=== PATIENT | female | born 1990 | race Caucasian/White ===

== ENCOUNTER 2017-12-30 13:10 | Emergency (ER) | payer MEDICAID ==
[2017-12-30 13:21] VITALS: BMI 24.0
[2017-12-30 14:24] LABS: BASO % 0.5 % (0.0-2.0); EOS # 0.1 K/uL (0.0-0.7); EOS % 0.8 % (0.0-4.0); LYMPH # 1.6 K/uL (1.0-4.3); LYMPH % 20.1 % (20.0-40.0); MEAN CELL VOLUME 90.3 fL (81.0-99.0); MEAN CORPUSCULAR HEMOGLOBIN 31.6 pg (27.0-31.0); MEAN CORPUSCULAR HGB CONC 34.9 g/dL (33.0-37.0); MEAN PLATELET VOLUME 7.8 fL (7.2-11.7); MONO # 0.5 K/uL (0.0-0.8); MONO % 5.9 % (0.0-10.0); NEUT # 5.7 K/uL (1.8-7.0); NEUT % 72.7 % (50.0-75.0); NRBC % 0.1 % (0.0-2.0); RBC 4.11 Mil/uL (3.80-5.20); RED CELL DISTRIBUTION WIDTH 13.6 % (11.5-14.5); WHITE BLOOD COUNT 7.8 K/uL (4.8-10.8)
--- NOTE | 2017-12-30 14:31 | OBHP ---
Datetime: 12/30/2017 14:01 IP Admit Plan: Observation/Evaluation Admit Comment, IP Provider: [id number] LMP unknown presents to [facility] w/ c/o pelvic pain x1 mo which was intermittent and now constant x2 days. aggravated by ambulation, change in position and relieved by rest. She denies ctxs, cramps, bleeding, pprom. +fm. No care w/ current preg. pt is from [facility]. States she conceived while and did not seek pnc because she did not know she wa s preg. she has been in in x1mo. she is not taking pnv. c/o h/a 02/11 without visual disturbance, aur a. +dizziness when not eating bread. c/o increased urinary freq. obhx: sab txed w/ cytotec; x2 w/ norml preg nkda shx: denies tobacco, etoh, or drugs pmhx: denies medic: none i: 2nd trim preg by PE p: cbc, t_s, ua ob us for dating Pelvic Type - PN: Adequate Extremities - PN: Normal Abdomen - PN: Normal Lungs - PN: Normal Heart - PN: Normal Neurologic - PN: Normal HEENT - PN: Normal General - PN: Normal FHR - Baseline A Provider: 140 Membranes, Provider: Intact Contraction Comments Provider: no Nitrazine Provider: Negative Vital Signs Provider: Within Normal Limits IP Chief Complaint: Other NICHD Variability Prov Fetus A: Moderate 6-25bpm NICHD Accel Fetus A IP Provider: 15X15 Dilatation, Provider: 0 Effacement, Provider: 0 Station, Provider: high
[2017-12-30 14:50] LABS: SQUAMOUS EPITHIAL < 1 /hpf (0-5); URINE BACTERIA RARE (<OCC); URINE BILIRUBIN NEGATIVE (NEGATIVE); URINE BLOOD NEGATIVE (NEGATIVE); URINE CLARITY Clear (Clear); URINE COLOR Colorless (YELLOW); URINE GLUCOSE (UA) NORMAL (Normal); URINE LEUKOCYTE ESTERASE NEG Leu/uL (Negative); URINE PROTEIN NEGATIVE (NEGATIVE); URINE UROBILINOGEN NORMAL mg/dL (0.2-1.0)
--- NOTE | 2017-12-30 16:20 | US ---
EXAM: US Uterus, Limited EXAM DATE/TIME: Exam ordered 12/30/2017 1:56 PM CLINICAL HISTORY: 27 years old, female; Pain; Other: Mild pelvic pain no care; Gestational age or lmp: Unknown; ; Additional info: No care; For edc TECHNIQUE: Real-time ultrasound of the maternal uterus (limited) with image documentation. COMPARISON: No relevant prior studies available. FINDINGS: Biometry BPD = [5.5 cm]; Estimated Menstrual Age = [22 w 5 d]; Range = [21W 0D x20 4W 3-D] HC = [20.52 cm]; Estimated Menstrual Age = [22 w 4 d]; Range = [45O1Y-85K8R] AC = [18.81 cm]; Estimated Menstrual Age = [23 w 4 d]; Range = [65E4L-08C1N] FL = [3.87 cm]; Estimated Menstrual Age = [22 w 3 d]; Range = [78D8T-28X 2-D] HC/AC Ratio = [1.09] normal 1.05-1.21 EFW = 554 g plus or -83 g (1 lb. 4 oz. plus or -3 ounces) Amniotic fluid: Qualitatively normal Placenta: Anterior and fundal and free of the cervical os Cervix: 3.2 cm in length. Closed at the time of the examination. Presentation: Vertex HR =[138 bpm] Survey : Not performed IMPRESSION: 1. Single live intrauterine with an estimated menstrual age of 22 weeks and 6 days plus or -1 week and 4 days. Expected date of delivery 04/29/2018.
[2017-12-30 20:19] VITALS: BP 101/57; PULSE 67; O2SAT 99
== END 2017-12-30 16:00 | disposition home or self-care (01) ==
LOC: C.EROB 13:10
DX: O26.92 Pregnancy related conditions, unspecified, second trimester (principal); R10.2 Pelvic and perineal pain; Z3A.22 22 weeks gestation of pregnancy

== ENCOUNTER 2018-05-04 08:00 | Inpatient (IN) | payer MEDICAID, OTHER ==
[2018-05-04] MEDS ORDERED: Lactated Ringer's 1,000 ML IV ONE (09:17)
[2018-05-04 09:19] VITALS: BMI 30.2
[2018-05-04 10:10] LABS: BASO % 0.3 % (0.0-2.0); EOS % 0.7 % (0.0-4.0); HEMOGLOBIN 12.5 g/dL (11.0-16.0); LYMPH # 1.3 K/uL (1.0-4.3); LYMPH % 19.8 % (20.0-40.0); MEAN CORPUSCULAR HEMOGLOBIN 30.3 pg (27.0-31.0); MEAN CORPUSCULAR HGB CONC 34.9 g/dL (33.0-37.0); MEAN PLATELET VOLUME 7.8 fL (7.2-11.7); MONO # 0.4 K/uL (0.0-0.8); MONO % 6.3 % (0.0-10.0); NEUT # 4.6 K/uL (1.8-7.0); NEUT % 72.9 % (50.0-75.0); NRBC % 0.1 % (0.0-2.0); RBC 4.14 Mil/uL (3.80-5.20); RED CELL DISTRIBUTION WIDTH 14.1 % (11.5-14.5); WHITE BLOOD COUNT 6.3 K/uL (4.8-10.8)
[2018-05-04 10:11] LABS: SQUAMOUS EPITHIAL 4 /hpf (0-5); URINE BACTERIA OCC (<OCC); URINE BILIRUBIN NEGATIVE (NEGATIVE); URINE BLOOD NEGATIVE (NEGATIVE); URINE CLARITY Clear (Clear); URINE COLOR Yellow (YELLOW); URINE GLUCOSE (UA) NORMAL (Normal); URINE LEUKOCYTE ESTERASE NEG Leu/uL (Negative); URINE PROTEIN NEGATIVE (NEGATIVE); URINE UROBILINOGEN NORMAL mg/dL (0.2-1.0)
[2018-05-04 10:15] LABS: MEAN CELL VOLUME 86.7 fL (81.0-99.0)
[2018-05-04] MEDS: Lactated Ringer's 1,000 ML IV SCH (10:15)
[2018-05-04 10:26] LABS: ALBUMIN 3.7 g/dL (3.5-5.0); BLOOD UREA NITROGEN 4 mg/dL (7-17); CALCIUM 8.6 mg/dl (8.6-10.4); GFR NON-AFRICAN AMERICAN > 60
[2018-05-04 10:27] LABS: ALB/GLOB RATIO 1.4 (1.0-2.1); ALT/SGPT 20 U/L (9-52); AST/SGOT 27 U/L (14-36)
--- NOTE | 2018-05-04 14:18 | OBHP ---
Datetime: 05/04/2018 09:53 IP Adm Impression: Term, intrauterine ; No Active Labor; Intact Membranes IP Admit Plan: Admit to unit; Initiate labor protocol Admit Comment, IP Provider: PGY2 H_P for Dr. Michel Patient is a 27 y/o who presents with 2 days of abdominal and back pain which she rates 4/ 10. LMP: unsure, CHANTEL: 04/28/18. Patient says the pain has increased for the past 2 hours with increase d movement. Patient denies any urinary symptoms. Current has had no complications. Patient goes to see Ms. Erickson at [facility] and was last seen on 05/02/18. OBhx: 2017: , baby girl, 3.5 kg, no complications 2014: , baby girl, 3 kg, no complications 2012: spontaneous at 3 mo, no d_c Gynhx: menarche: 12, 1 mo, 7 days no hx of STIs, fibroids, or cysts PMHx: none Psurg: none Socialhx: denies tobacco, drugs, alcohol. to [facility] for 6 years, homemaker Famhx: Mom: 61 y/o with DMII, Dad: 61 y/o, healthy 28 y/o at 41 weeks for IOL, category I tracing, GBS negative. Discussed with patient cervical ripening and patient understands and agrees. Patient open to consider pain relief as needed. Plan: 1) Admit 2) NPO 3) Admission labs 4) continuous EFM 5) cervidil 6) pain management as requested 7) anticipate vaginal delivery Aura Raza PGY2 Attendng Note: patient seen by me with the Residents. I agree with the above as documented. Cervi marianne exam performed by me: cervix is very anteroir, sitting behing the symphysis pubis. Cervidil placed in posterior vaginal vault at 1021 hours Plan: 1) as above. Pelvic Type - PN: Adequate Extremities - PN: Normal Abdomen - PN: Normal Back - PN: Normal Breast - PN: Normal Lungs - PN: Normal Heart - PN: Normal Neurologic - PN: Normal HEENT - PN: Normal General - PN: Normal Weight - Estimated: 3745 Presentation-Admit: Vertex FHR - Baseline A Provider: 140 Contraction Comments Provider: irregular Comments, ACOG Physical Exam: abdomen: gravid, soft, non tender, fundal height: 42cm All other systems reviewed and are negative Gestation - Est Wks by US: 40.6 Pool Provider: Negative IP Hx Assessment: The History has been Reviewed and is Current EGA AdmitDate IP: 40.6 Vital Signs Provider: Reviewed; Within Normal Limits IP Chief Complaint: Scheduled induction of labor NICHD Variability Prov Fetus A: Marked >25bpm FHR Category Provider Fetus A: Category I NICHD Decel Fetus A IP Provider: None Dilatation, Provider: 2 Effacement, Provider: 30 Station, Provider: -3 Genitourinary Exam: Normal DTRs - PN: Not Done
[2018-05-04] MEDS ORDERED: Bupivacaine HCl/FentaNYL Cit 0 ML EPI ONE (23:01)
[2018-05-04] MEDS ORDERED: DiphenhydrAMINE 50 mg/ml Inj IVP STA (23:57)
[2018-05-04] MEDS ORDERED: Nalbuphine HCL 10 mg/ml Ampule IVP ONE (23:57)
[2018-05-05] MEDS ORDERED: DiphenhydrAMINE 50 mg/ml Inj ONE (00:20)
[2018-05-05] MEDS ORDERED: Nalbuphine HCL 10 mg/ml Ampule ONE (00:20)
[2018-05-05] MEDS ORDERED: Bupivacaine HCl/FentaNYL Cit 100 ML EPI ONE (07:41)
[2018-05-05] MEDS ORDERED: Oxytocin 30 UNIT 30 UNITS/500 ML BAG IV SCH (07:45)
--- NOTE | 2018-05-05 07:46 | OBPN ---
Datetime: 05/05/2018 07:37 IP Progress Impression: Reassuring heart rate; Reactive non-stress test IP Informed Consent Obtain: Vaginal Delivery IP Procedures: Sterile Vag Exam IP Progress Plan: Continue present management; Induction; Anesthesia consult Pool Provider: Negative Membranes, Provider: Intact Contraction Comments Provider: 2-3 FHR - Baseline A Provider: 150 Gestation - Est Wks by US: 41.0 Presentation-Admit: Vertex IP Progress Note Comment: 27 yo female with a IUP at 41 weeks Admitted for IOL on 05/04 and given Cervidil yesterday Requesting an Epidural at this time NST reassuring head floating and will start Pitocin after the Epidural attempting to make contractions stro nger Hope for vaginal delivery Vital Signs Provider: Reviewed; Within Normal Limits NICHD Accel Fetus A IP Provider: 10X10 FHR Category Provider Fetus A: Category I NICHD Variability Prov Fetus A: Moderate 6-25bpm Dilatation, Provider: 6 Effacement, Provider: 80 Station, Provider: -4 NICHD Decel Fetus A IP Provider: None Datetime: 05/04/2018 09:53 Weight - Estimated: 3745 Datetime: 12/30/2017 14:01 Nitrazine Provider: Negative
[2018-05-05] MEDS ORDERED: Oxytocin 30 UNIT 30 UNITS/500 ML BAG IV ONE (08:53)
--- NOTE | 2018-05-05 10:49 | OBPN ---
Datetime: 05/05/2018 10:27 IP Progress Impression: Normal progression of labor IP Informed Consent Obtain: Vaginal Delivery IP Procedures: Artificial ROM; Scalp Electrode; Sterile Vag Exam; Epidural Placement IP Progress Plan: Continue present management; Induction; Anticipate Vaginal Delivery Membranes, Provider: Ruptured Amniotic Fluid Color, Provider: Clear Contraction Comments Provider: 3-4 FHR - Baseline A Provider: 140-150 Gestation - Est Wks by US: 41.0 Presentation-Admit: Vertex IP Progress Note Comment: AROM with return of large amounts or clear fluid ISL placed with ease UC's Q 3-4 mins with Pitocin at 6 mu/min and will continue increasing to an adequate labor pattern SVE essentially unchanged from last exam VSS/Afebrile Epidural in place and working well 300 bous of D5 1/2 NS given Hope for a vaginal delivery Vital Signs Provider: Reviewed; Within Normal Limits NICHD Accel Fetus A IP Provider: 10X10 NICHD Variability Prov Fetus A: Moderate 6-25bpm Dilatation, Provider: 6 Effacement, Provider: 90 Station, Provider: -3 NICHD Decel Fetus A IP Provider: None
[2018-05-05] MEDS ORDERED: Sodium Citrate/Citric Acid 15 ml Sol ONE (13:07)
[2018-05-05] MEDS ORDERED: cefOXitin IV 2 gm in Saline 2 GM/50 ML BAG IVPB ONE (13:07)
[2018-05-05] MEDS ORDERED: cefOXitin IV 2 gm in Dextrose 2 GM/50 ML BAG IVPB ONE (13:26)
[2018-05-05] MEDS ORDERED: Sodium Citrate/Citric Acid 15 ml Sol PO ONE (13:26)
--- NOTE | 2018-05-05 13:36 | OBPN ---
Datetime: 05/05/2018 13:11 IP Progress Impression: Arrest of dilatation/descent; Non-reassuring heart rate IP Informed Consent Obtain: Section Delivery IP Progress Plan: Deliver- Section Contraction Comments Provider: Q2-3 mins FHR - Baseline A Provider: 160 IP Fetus A Comments: Intolerance of Labor Gestation - Est Wks by US: 41.0 Presentation-Admit: Vertex IP Progress Note Comment: Pitocin up to 10 mu/min and contractions Q 2-4 minutes FHT's with mild Tachycardia moderate Variables and Early deccelerations, so Pitocin stopped No cervical change for the past almost 6 hours. Pt requesting to continue for a vaginal delivery Arrest of Descent and Dilatation Intolerance of Labor A Section delivery is indicated Present condition fully explained to patient and FOB via an gas and oil servicer and they verbalized unders tanding of risks of continuing to wait and also risks and benefits of Section delivery. Pt requested to proceed with Section and signed the consent for it and also for blood tra nsfusion Anesthesia and Dr. Graves aware and will proceed BONNIE Vital Signs Provider: Reviewed; Within Normal Limits NICHD Accel Fetus A IP Provider: 90 FHR Category Provider Fetus A: Category II NICHD Variability Prov Fetus A: Moderate 6-25bpm Dilatation, Provider: 6 Effacement, Provider: 90 Station, Provider: -3 NICHD Decel Fetus A IP Provider: Variable
[2018-05-05] MEDS ORDERED: ePHEDrine 50 mg/ml Inj ONE (13:37)
[2018-05-05] MEDS ORDERED: Oxytocin 20 units in LR 2,000 ML IV ONE (14:02)
[2018-05-05] MEDS ORDERED: Morphine 1 mg/ml preservative-free Inj(Duramorph) ONE (14:31)
[2018-05-05] MEDS ORDERED: DiphenhydrAMINE 50 mg/ml Inj IVP PRN (15:13)
--- NOTE | 2018-05-05 16:27 | OBDS ---
DELIVERY PERSONNEL Delivery Doctor: DR JACINTA Turner Nurse: Awa Wilkinson Lease Out Worker: Jose Baca RN Anesthesiologist: edgar Resident: DR REES MATERNAL INFORMATION Delivery Anesthesia: Epidural Medications in Delivery: see anesthesia note Estimated Blood Loss (ml): 600 Placenta Cultured: No Maternal Complications: None Other Maternal Complications: Primary C/S for intolerance to labor and failure to progress (arnaud th dilatation and station) Provider Comments: Primary LTC/S with steph of a viable male from BONY position and after reducing a loose CNC X 1. Apgars 9_9 and BW 8lbs 14 oz LABOR SUMMARY EDC: 04/28/2018 00:00 No. Babies in Womb: 1 Attempted: No Labor Anesthesia: None LABOR INFORMATION Reason for Induction: Postterm Reason for Induction Other: post dates Onset of Labor: 05/05/2018 00:00 Cervical Ripening Agents: Cytotec @ (Annotations: 50mcg po) Oxytocin: Augmentation Group B Beta Strep: Negative Steroids Given: None Reason Steroids Not Administered: Not Applicable MEMBRANES Membranes Rupture Method: Artificial Rupture of Membranes: 05/05/2018 10:25 Length of Rupture (hrs): 4.02 Amniotic Fluid Color: Clear Amniotic Fluid Amount: Moderate Amniotic Fluid Odor: Normal STAGES OF LABOR Stage 3 hrs: 0 Stage 3 min: 1 Total Time in Labor hrs: 14 Total Time in Labor min: 27 CSECTION DELIVERY Primary Indication: Arrest of Descent Other Primary Indication: arrest of dilatation Other Secondary Indication: intolerance to labor CSection Urgency: Elective CSection Incidence: Primary Labor: Labor Elective: Elective CSection Incision: Lower Uterine Transverse BABY A INFORMATION Infant Delivery Date/Time: 05/05/2018 14:26 Method of Delivery: Born in Route : No : N/A Forceps: N/A Vacuum Extraction: N/A Shoulder Dystocia : No SHOULDER DYSTOCIA BABY A Infant Delivery Date/Time: 05/05/2018 14:26 PRESENTATION/POSITION BABY A Presentation: Cephalic Breech Presentation: N/A PLACENTA INFORMATION BABY A Placenta Delivery Time : 05/05/2018 14:27 Placenta Method of Delivery: Manual Removal Placenta Status: Delivered SCORES BABY A Heart Rate 1 min: >100 bpm Resp Effort 1 min: Good Cry Reflex Irritability 1 min: Cough or Sneeze or Pulls Away Muscle Tone 1 min: Active Motion Color 1 min: Body [place], Extremities Blue Resuscitation Effort 1 min: Tactile Stimulation SCORE 1 MIN: 9 Heart Rate 5 min: >100 bpm Resp Effort 5 min: Good Cry Reflex Irritability 5 min: Cough or Sneeze or Pulls Away Muscle Tone 5 min: Active Motion Color 5 min: Body [place], Extremities Blue Resuscitation Effort 5 min: N/A SCORE 5 MIN: 9 INFANT INFORMATION BABY A Gestational Age at Delivery: 41.0 Gestational Status: Term Outcome : Liveborn Infant Condition : Stable Infant Sex: Male IDENTIFICATION/MEDS BABY A ID Band Number: [id number] ID Band Location: Left Leg; Left Arm Sensor Applied: Yes Sensor Number: [id number] Sensor Location : Cord Clamp WEIGHT/LENGTH BABY A Infant Birthweight (gms): 4020 Infant Weight (lb): 8 Infant Weight (oz): 14 Length Inches: 21.00 Infant Length cms: 53.3 CORD INFORMATION BABY A No. Cord Vessels: 3 Nuchal Cord : Around Neck x1, Loose Infant Cord pH Baby Venous: 7.35 Cord Blood Taken: Yes Infant Suction: Mouth; Nose
[2018-05-05] MEDS: Lactated Ringer's 1,000 ML IV SCH (22:25)
[2018-05-06 08:30] LABS: MEAN CELL VOLUME 88.4 fL (81.0-99.0); MEAN CORPUSCULAR HEMOGLOBIN 31.1 pg (27.0-31.0); MEAN CORPUSCULAR HGB CONC 35.2 g/dL (33.0-37.0); MEAN PLATELET VOLUME 7.9 fL (7.2-11.7); RBC 2.97 Mil/uL (3.80-5.20); RED CELL DISTRIBUTION WIDTH 14.4 % (11.5-14.5)
[2018-05-06 08:42] LABS: HEMOGLOBIN 9.2 g/dL (11.0-16.0)
[2018-05-06] MEDS: Oxycodone/Acetaminophen 5/325 mg Tab PO PRN ×2 (09:20→17:03)
[2018-05-06] MEDS: Prenatal Multivit/Folic Acid/Iron Tab PO SCH (09:20)
--- NOTE | 2018-05-06 16:39 | OBPPN ---
Datetime: 05/06/2018 13:31 PP Pain Prov: Within normal limits PP Nausea Prov: Denies PP Flatus Prov: Yes PP BM Prov: No PP Breasts Prov: Not Done PP Heart Prov: Normal PP Lungs Prov: Normal PP Abdomen/Uterus Prov: Normal PP Lochia Prov: Normal PP Vulva/Perineum Prov: Normal PP CVA Tenderness Prov: Normal PP Extremities Prov: Normal PP C/S Incision Prov: Normal PP Progress Prov: Normal PP Comments Phys Exam Prov: Dressing clean, Dry and Intact PP Impression Prov: Normal progression PP Plan Prov: Continue present management; consult PP Progress Note Prov: POD # 1 S/P Primary C/S Seen and Examined. Line Endocrinology Physician utilized for communication since no Georgian with difficulties and Consultation ordered. Advised to increase po water intake and to give Breast Q 2 hrs Difficulty voiding after Catheter removed but went 300 mls after an IV fluid bolus of 500 mls Post-Op H_H 9.2/26.3 Mild lochia and pain controlled with pain medications C/O of body itching and Benadryl given and ressolved. Encouraged to increase activity Tolerated regular diet Advance care IP PP Procedures: None
[2018-05-07] MEDS: Oxycodone/Acetaminophen 5/325 mg Tab PO PRN ×2 (08:32→23:14)
--- NOTE | 2018-05-07 09:09 | OBPPN ---
Datetime: 05/07/2018 09:00 PP Pain Prov: Within normal limits PP Nausea Prov: Denies PP Flatus Prov: No PP BM Prov: No PP Breasts Prov: Normal PP Lungs Prov: Normal PP Abdomen/Uterus Prov: Normal PP Lochia Prov: Normal PP C/S Incision Prov: Normal PP Progress Prov: Normal PP Comments Phys Exam Prov: ABD: Soft, NT. Incision clean and dry, Uterus firm at umbilicus Extr: No calf tenderness PP Impression Prov: Normal progression PP Plan Prov: Continue present management; consult PP Progress Note Prov: POD #2 Pt doing well. Pt c/o being tired of breast feeding. Will consult data analytics specialist. F/U CBC Continue post op care IP PP Procedures: None Vital Signs Provider PP: Reviewed; Within Normal Limits
[2018-05-07] MEDS: Prenatal Multivit/Folic Acid/Iron Tab PO SCH (09:44)
[2018-05-07 11:37] LABS: BASO % 0.2 % (0.0-2.0); EOS # 0.1 K/uL (0.0-0.7); EOS % 0.8 % (0.0-4.0); HEMOGLOBIN 8.5 g/dL (11.0-16.0); LYMPH % 12.1 % (20.0-40.0); MEAN CELL VOLUME 88.5 fL (81.0-99.0); MEAN CORPUSCULAR HEMOGLOBIN 30.7 pg (27.0-31.0); MEAN CORPUSCULAR HGB CONC 34.7 g/dL (33.0-37.0); MEAN PLATELET VOLUME 7.7 fL (7.2-11.7); MONO # 0.4 K/uL (0.0-0.8); MONO % 4.8 % (0.0-10.0); NEUT # 6.6 K/uL (1.8-7.0); NEUT % 82.1 % (50.0-75.0); RBC 2.76 Mil/uL (3.80-5.20); RED CELL DISTRIBUTION WIDTH 14.5 % (11.5-14.5)
[2018-05-07] MEDS ORDERED: Lidocaine/Prilocaine 2.5%-2.5% Cream (5 gm) TOP ONE (14:30)
[2018-05-08 08:37] VITALS: RESP 18
[2018-05-08] MEDS: Prenatal Multivit/Folic Acid/Iron Tab PO SCH (10:48)
[2018-05-08] MEDS: Oxycodone/Acetaminophen 5/325 mg Tab PO PRN (10:52)
[2018-05-08 16:30] VITALS: BP 109/74; PULSE 65; O2SAT 97
--- NOTE | 2018-05-08 22:50 | OBDCSUM ---
Datetime: 05/08/2018 12:00 Discharged to, Provider: Home Follow up at, Provider: clinic Disch Instr Activity: Normal activity; May be up to bathroom; May be up for meals; May Shower Disch Instr Diet: Regular Discharge Instructions, Provider: Routine instructions given Discharge Diagnosis, Provider: Postterm Delivery Follow up in weeks, Provider: 05/14/18 Contraception discussed, Prov: Yes Disch Activity Restrictions: No lifting; No sexual activity; Nothing in vagina - [place], tampon s, douche Discharge Diagnosis Prov Other: Failed trial of labor Status post section Acute blood loss anemia Contraception counseling Contraception after Delivery: IUD Datetime: 12/30/2017 15:45 Follow up at, Provider: [facility]. Follow up in weeks, Provider: 05/13/18 Disch Activity Restrictions: No lifting; No sexual activity; Nothing in vagina - [place], tampon s, douche
--- NOTE | 2018-05-08 22:50 | OBPPN ---
Datetime: 05/08/2018 22:38 PP Pain Prov: Within normal limits PP Nausea Prov: Denies PP Flatus Prov: Yes PP BM Prov: No PP Breasts Prov: Normal PP Heart Prov: Normal PP Lungs Prov: Normal PP Abdomen/Uterus Prov: Normal PP Lochia Prov: Normal PP Vulva/Perineum Prov: Not Done PP CVA Tenderness Prov: Normal PP Extremities Prov: Normal PP C/S Incision Prov: Normal PP Progress Prov: Normal PP Comments Phys Exam Prov: Abdomen: Soft. Non distended. Fundus firm, 2 FB above umbilicus. Incisio n with wally - clean, dry, intact. Mild lochia rubra Extremities: no calf tenderness All other systems reviewed and arenegative PP Impression Prov: Normal progression PP Plan Prov: Discharge PP Progress Note Prov: Patietn seen and evalauted at approximately 0945 hours: received in room 460, in bed with . Denies nausea, vomiting. Headaches, dizziness, lightheadedness. . P.E.: as above. WD in NAD. Awake, alert, oriented to time, person and place. Pleasant and coopera tive - POD#2 H/H 8.5/24.5 Assessment: POD#3, 27 y.o. [id number], S/P primary LTCS for arrest of dilatation/ descent. Afebrile, vi wicho signs stable. Returning GI And functions. Acute blood loss anemia - asymptomatic and hemodynam ically stable. Interested n IUD for contraception. Clinically stable Plan: 1) Discharge home 2) See full discharge instructions Vital Signs Provider PP: Reviewed; Within Normal Limits
[2018-05-08 23:19] VITALS: TEMP 97
== END 2018-05-08 18:35 | disposition home or self-care (01) | DRG 371 ==
LOC: C.EROB 08:00 → C.4D 08:10 → C.4M 05-05 17:15
PROVIDERS: ADMIT Obstetrics & Gynecology; ATTEND Obstetrics & Gynecology
PROC: 10D00Z1 Extraction of Products of Conception, Low, Open Approach (ICD-10-PCS; principal; 2018-05-05)
PROC: 3E0P7VZ Introduction of Hormone into Female Reproductive, Via Natural or Artificial Opening (ICD-10-PCS; 2018-05-05)
PROC: 10907ZC Drainage of Amniotic Fluid, Therapeutic from Products of Conception, Via Natural or Artificial Opening (ICD-10-PCS; 2018-05-05)
DX: O48.0 Post-term pregnancy (principal); O76 Abnormality in fetal heart rate and rhythm complicating labor and delivery; O62.0 Primary inadequate contractions; O66.40 Failed trial of labor, unspecified; O32.4XX0 Maternal care for high head at term, not applicable or unspecified; O69.81X0 Labor and delivery complicated by cord around neck, without compression, not applicable or unspecified; Z3A.41 41 weeks gestation of pregnancy; Z37.0 Single live birth